=== PATIENT | female | born 1965 | race Caucasian/White ===

== ENCOUNTER 2021-10-09 07:02 | Outpatient (REF) | payer OTHER, SELFPAY ==
[2021-10-09 07:18] LABS: MANUAL DIFF FLAG NO
[2021-10-09 08:22] LABS: Basophils Percent Auto 0.3 % (0-2); Eosinophils Percent Auto 0.5 % (0-4); Hematocrit 37.4 % (37.0-47.0); Hemoglobin 12.9 g/dl (12.0-16.0); Imm Gran Abs Auto 0.02 X10*3/uL (0.00-0.03); Imm Gran Pct Auto 0.3 % (0.0-0.4); Lymphocytes Absolute Auto 1.5 X10*3/uL (1.2-4.9); Lymphocytes Percent Auto 22.9 % (20-40); Mean Corpuscular HGB Conc 34.5 g/dl (31.0-35.0); Mean Corpuscular Hemoglobin 32.1 pg (27.0-33.0); Monocytes Absolute Auto 0.5 X10*3/uL (0.1-1.2); Monocytes Percent Auto 7.4 % (2-11); Neutrophils Absolute Auto 4.6 x10*3/uL (2.0-8.3); Neutrophils Percent Auto 68.6 % (45-73); Platelet Count 412 X10*3/uL (160-400); Red Blood Count 4.02 X10*6/uL (4.20-5.50); Red Cell Distribution Width 12.7 % (11.0-16.0); White Blood Count 6.7 X10*3/uL (4.8-10.8)
[2021-10-09 09:07] LABS: HBS Num1 195.47 mIU/mL (0-7.99); ~Hepatitis B Surface Antibody REACTIVE (Nonreactive)
[2021-10-09 09:14] LABS: Alanine Aminotransferase 7 U/L (0-31); Alkaline Phosphatase 101 U/L (39-117); Anion Gap 12 (12-20); Aspartate Amino Transferase 14 U/L (5-31); Blood Urea Nitrogen 14 mg/dL (9-16); Calcium 9.6 mg/dL (8.4-10.2); Carbon Dioxide 23 mmol/L (22-29); Chloride 101 mmol/L (96-108); Cholesterol 190 mg/dL; Estimated Glomerular Filt Rate > 60; Glucose Random 100 mg/dL (60-115); HDL Cholesterol 44 mg/dL; LDL Cholesterol Calculated 128 mg/dl; Potassium 4.4 mmol/L (3.3-5.1); Sodium 132 mmol/L (135-145); Total Protein 6.7 g/dL (6.5-8.0); Triglycerides 93 mg/dL
[2021-10-09 09:36] LABS: Bilirubin Total 0.4 mg/dL (0.0-1.0)
[2021-10-11 13:32] LABS: TS Negative Control Passed; TS Panel A 0; TS Panel B 0; TS Positive Control Passed; TSpotTB Negative (Negative)
== END 2021-10-09 07:03 | disposition home or self-care (01) ==
LOC: HO.LAB 07:02
PROVIDERS: PCP Internal Medicine; Visit Provider Internal Medicine
DX: Z11.1 Encounter for screening for respiratory tuberculosis (principal); E78.2 Mixed hyperlipidemia; F17.200 Nicotine dependence, unspecified, uncomplicated; I10 Essential (primary) hypertension
CPT/HCPCS: 36415; 80053; 80061; 85025; 86481; 86706

== ENCOUNTER 2023-05-07 15:56 | Outpatient (REF) | payer OTHER, SELFPAY ==
--- NOTE | ~2023-05-07 | MM_ITS ---
EXAMINATION: MM SCREENING DIGITAL BREAST TOMOSYNTHESIS, BILATERAL CLINICAL INFORMATION: Screening. Asymptomatic. COMPARISON: Mammography: This study is compared with prior exams dating back to 2012. TECHNIQUE: Digital breast tomosynthesis is performed in both the craniocaudal and mediolateral oblique views along with computer-aided detection (CAD). Synthesized 2D images are generated from the tomosynthesis. FINDINGS: The breasts are heterogeneously dense, which may obscure small masses (ACR BI-RADS breast composition Category c). There are no significant masses, abnormal calcifications, or other abnormalities. MM/MM tomosynthesis screening BI IMPRESSION: No mammographic evidence of malignancy. ASSESSMENT: BI-RADS BI-RADS 1 - Negative RECOMMENDATION: Routine annual mammography screening. 1 year F/U This examination should not preclude the clinical evaluation of a suspicious palpable abnormality. This patient's information was entered into a reminder system with a target due date for their next mammogram.
== END 2023-05-07 15:57 | disposition home or self-care (01) ==
LOC: HO.MAMMO 15:56
PROVIDERS: PCP Internal Medicine; Visit Provider Internal Medicine
DX: Z12.31 Encounter for screening mammogram for malignant neoplasm of breast (principal)
CPT/HCPCS: 77063; 77067

== ENCOUNTER → 2023-05-07 16:00 | Outpatient (BNV) | payer OTHER, SELFPAY | PROVIDERS: PCP Internal Medicine; Visit Provider Radiology Diagnostic Radiology | DX: Z12.31 Encounter for screening mammogram for malignant neoplasm of breast (principal) | CPT/HCPCS: 77063; 77067 ==

== ENCOUNTER 2023-12-31 09:06 | Outpatient (REF) | payer OTHER, SELFPAY ==
[2023-12-31 10:40] LABS: Alanine Aminotransferase 11 U/L (0-31); Albumin Level 4.2 g/dL (3.5-5.0); Alkaline Phosphatase 87 U/L (39-117); Anion Gap 13 (12-20); Aspartate Amino Transferase 16 U/L (5-31); Bilirubin Total 0.5 mg/dL (0.0-1.0); Blood Urea Nitrogen 10 mg/dL (9-16); Calcium 9.3 mg/dL (8.4-10.2); Carbon Dioxide 21 mmol/L (22-29); Chloride 97 mmol/L (96-108); Estimated Glomerular Filt Rate > 60; Glucose Random 88 mg/dL (60-115); Potassium 4.2 mmol/L (3.3-5.1); Sodium 127 mmol/L (135-145); Total Protein 6.7 g/dL (6.5-8.0)
[2024-01-03 10:54] LABS: TS Negative Control Passed; TS Panel A 0; TS Panel B 0; TS Positive Control Passed; TSpotTB Negative (Negative)
== END 2023-12-31 09:07 | disposition home or self-care (01) ==
LOC: HO.LAB 09:06
PROVIDERS: PCP Internal Medicine; Visit Provider Internal Medicine
DX: Z11.1 Encounter for screening for respiratory tuberculosis (principal); E78.00 Pure hypercholesterolemia, unspecified; I10 Essential (primary) hypertension; N39.3 Stress incontinence (female) (male); F17.200 Nicotine dependence, unspecified, uncomplicated
CPT/HCPCS: 36415; 80053; 86481

== ENCOUNTER 2024-06-25 10:14 | Outpatient (REF) | payer OTHER, SELFPAY ==
--- NOTE | ~2024-06-25 | MM_ITS ---
EXAMINATION: MM SCREENING DIGITAL BREAST TOMOSYNTHESIS, BILATERAL CLINICAL INFORMATION: Screening. Asymptomatic. COMPARISON: Mammography: Comparison is made with available priors TECHNIQUE: Digital breast mammography with tomosynthesis is performed in both the craniocaudal and mediolateral oblique views along with computer-aided detection (CAD). FINDINGS: The breasts are heterogeneously dense, which may obscure small masses (ACR BI-RADS breast composition Category c). There are no significant masses, abnormal calcifications, or other abnormalities. MM/MM tomosynthesis screening BI IMPRESSION: No mammographic evidence of malignancy. ASSESSMENT: BI-RADS BI-RADS 1 - Negative RECOMMENDATION: Routine annual mammography screening. 1 year F/U This examination should not preclude the clinical evaluation of a suspicious palpable abnormality. This patient's information was entered into a reminder system with a target due date for their next mammogram. Electronically signed by: Atiya Jones DO 07/05/2024 10:37 AM QUENTIN
== END 2024-06-25 10:15 | disposition home or self-care (01) ==
LOC: HO.MAMMO 10:14
PROVIDERS: PCP Internal Medicine; Visit Provider Internal Medicine
DX: Z12.31 Encounter for screening mammogram for malignant neoplasm of breast (principal)
CPT/HCPCS: 77063; 77067

== ENCOUNTER → 2024-06-25 10:30 | Outpatient (BNV) | payer OTHER, SELFPAY | PROVIDERS: PCP Internal Medicine; Visit Provider Internal Medicine | DX: Z12.31 Encounter for screening mammogram for malignant neoplasm of breast (principal) | CPT/HCPCS: 77063; 77067 ==

== ENCOUNTER 2025-07-13 13:46 | Outpatient (AMB) | payer OTHER, SELFPAY ==
--- NOTE | 2025-07-13 14:10 | A.OFFVIS_ITS ---
Vital Signs 07/13/25 14:11 07/13/25 14:23 Height 5 ft 5 in 5 ft 5 in Weight 150 lb 150 lb BMI 25.0 25.0 Intake Visit Reasons: Rt Foot Fracture Toe,f/u from [facility] Intake Note: Teresita is a 60 year old female who presents today as a new patient for an evaluation of her 5th metatarsal fracture. She was seen at [facility] on 07/10/25 where she was provided with a cam boot and crutches. Patient reports injury occurred after she tripped over her dog and while she was trying to catch her balance her foot accidentally hit her dog's head. She states she has been taking Tylenol and ibuprofen to manage her pain symptoms and has found slight relief. Patient has previous bunionectomy done in her right foot. Allergies bee pollen (Bee Stings) Allergy (Mild, Verified 07/13/25 14:23) SWELLING, HIVES, chlorzoxazone (From Parafon Forte DSC) Allergy (Mild, Verified 07/13/25 14:23) SWELLING ciprofloxacin (Cipro) Allergy (Unknown, Verified 07/13/25 14:23) hives coconut Allergy (Unknown, Uncoded 04/05/20 00:00) hives Parafon Forte DSC Allergy (Unknown, Uncoded 04/05/20 00:00) angioedema HPI HPI Rt Foot Fracture Toe,f/u from [facility]: Details: 60 y/o female seen today for initial evaluation of right 5th toe fracture and painful bunion. She had a mechanical fall at home and was then seen at [facility] on 07/10/25 where she was provided with a cam boot and crutches. She notes pain has improved since then. She also has a history of a painful bunion to her right foot. She had bunion surgery 20+ years ago however the deformity recurred. She was seen by a surgeon at [facility] who recommended MTP fusion. Social: - She works as a nurse at [employer], and is a teacher at [employer]. - (+) tobacco use: 1/2 PPD Review of Systems Const All systems reviewed & are unremarkable except as noted in HPI and below Physical Exam Vital Signs: BMI result Body Mass Index 25.0 Extrem Other: *Bilateral Lower Extremity Focused Exam Vascular: DP/PT 2/4, CFT<3s to digits, TG warm to cool, mild right 5th digit edema Derm: Incision scar over 1st metatarsophalangeal joint Neuro: Protective sensation grossly intact to bilateral lower extremities. MSK: Prominent dorsal and medial eminence noted at the R first metatarsophalangeal (MTP) joint without tenderness on palpation. Tracking hallux valgus deformity. Right 1st Metatarsophalangeal joint ROM: 45?. no crepitus. no pain on end range of motion. No hypermobile first ray. Results Reviewed Results Reviewed: X-ray Read: 07/10/2025 X-ray right foot 3 views (AP, MO, Lateral) reviewed which shows non- displaced extra-articular oblique 5th proximal phalanx fracture. 1st I personally reviewed the imaging and my findings are listed above. Assessment & Plan Assessment & Plan (1) Toe fracture, right: Code(s): S92.911A - Unspecified fracture of right toe(s), initial encounter for closed fracture Category: Medical Qualifiers: Encounter type: initial encounter Toe: lesser toe Fracture type: closed Phalanx: proximal Fracture alignment: nondisplaced Qualified Code(s): S92.514A - Nondisplaced fracture of proximal phalanx of right lesser toe(s), initial encounter for closed fracture Plan: * Reviewed right foot x-ray * Transition from CAM boot to open-toe shoe. * Applied phu tape to 4th/5th toes. * Instructed to avoid high impact activities. * Follow up in 1 month with new x-ray (2) Hallux valgus (acquired), right foot: Code(s): M20.11 - Hallux valgus (acquired), right foot Category: Medical Plan: * Right foot x-rays show retained hardware (k-wire/pin) in the first metatarsal shaft as well as arthritic changes to the 1st MTP. * The patient has significant retained range of motion clinically with no crepitus or pain. Thus, the surgical recommendation is a lapidus procedure (tarso-metatarsal fusion) to correct the hallux valgus deformity (with additional soft tissue balancing at 1st MTP). Additionally, the patient is not a candidate for a distal metatarsal osteotomy due to limited bone stock from her previous surgery. It was explained that a 1st MTP fusion would be a more definitive procedure and she may still require it in the future however correcting her bunion deformity with joint preservation is her goal. Additionally, a first TMT fusion will also allow 1st MTP joint decompression. * The patient will plan for surgical correction likely in September. She was advised to discuss this further in August 1 month pre-op. (3) Hammertoe of right foot: Code(s): M20.41 - Other hammer toe(s) (acquired), right foot Category: Medical Plan: * She will require 2nd MTP soft tissue balancing (Z-lengthening) and possible revisional hammertoe arthrodesis. (4) Smoker: Code(s): F17.200 - Nicotine dependence, unspecified, uncomplicated Category: Social Hx Plan: * Tobacco use is known to impair fracture healing by reducing blood flow, inhibiting osteoblast function, and decreasing collagen synthesis. Studies have shown that smokers have up to a 2.3-fold increased risk of delayed union or nonunion compared to non-smokers, and increasing time to union by 4-6 weeks, leading to a higher incidence of complications during the bone healing process. * She was advised to quit smoking at least 6 weeks prior to surgery. Orders: Orders XR foot RT min 3V 3 Weeks M20.11 - Hallux valgus (acquired), right foot, S92.514A - Nondisplaced fracture of proximal phalanx of right lesser toe(s), initial encounter for closed fracture Coding Level of Care Code New Pt Level 4 (25843) Diagnoses Closed nondisplaced fracture of proximal phalanx of lesser toe of right foot, initial encounter S92.514A Encounter type: initial encounter Toe: lesser toe Fracture type: closed Phalanx: proximal Fracture alignment: nondisplaced Hallux valgus (acquired), right foot M20.11 Hammertoe of right foot M20.41 Smoker F17.200 Time Spent (min) 35
[2025-07-13 14:11] VITALS: BMI 25.0
[2025-07-13 14:23] VITALS: BMI 25.0
--- OUTSIDE RECORDS SUMMARY | 2025-07-13 19:12 | XMS_ITS | Data Portability ---
Author Organization [facility], [address] Address [address] [place] [address] Assessment No assessment recorded. Plan of Treatment Reminders Order Date Submit Date Provider Last Modified By Organization Details Last Modified Time Details Appointments None recorded. Lab rapid SARS CoV 2 Ag, QL IA, respiratory specimen 2021 [email or web address] 1 _[facility], [address] [place] [address], [phone], 12:58:37 rapid flu (A+B) 2021 [email or web address] 1 _[facility], [address] [place] [address], [phone], 12:58:37 Referral None recorded. Procedures None recorded. Surgeries None recorded. Imaging None recorded. Medication Orders oseltamivir 75 mg capsule 2021 [id number], [address] [place], [address], 12:58:40 fluticasone propionate 50 mcg/actuati on nasal spray,suspe nsion 2021 [facility] #[id number], [address] [place], [address], 12:58:39 Patient TargetsNo targets recorded. Patient Instructions Encounter Date Encounter Id Patient Instructions Last Modified By Organization Details Last Modified Time 08/14/2022 [id number] influenza (flu): care instructions Not available 08/14/2022 12:58:37 Reason for Referral None Reported. Results Created Date Observation Date Name Description Value Unit Range Abnormal Flag Note LastModifiedBy Organization Detail LastModifiedTime 08/14/20 22 08/14/2022 rapid SARS CoV 2 Ag, QL IA, respi rator y speci men Unknown Analyte Normal =Negat victoria Not Available [id number] sorensen [address], [address], 08/14/2022 12:21:18 08/14/20 22 08/14/2022 rapid SARS CoV 2 Ag, QL IA, respi rator y speci men Unknown Analyte negati ve Not Available [id number], [address], 08/14/2022 12:21:18 08/14/20 22 08/14/2022 rapid flu (A+B) Unknown Analyte Normal = Negati ve Not Available [id number], [address], 08/14/2022 12:21:24 08/14/20 22 08/14/2022 rapid flu (A+B) Unknown Analyte Normal = Negati ve Not Available [id number], [address], 08/14/2022 12:21:24 08/14/20 22 08/14/2022 rapid flu (A+B) Unknown Analyte negati ve Not Available [id number], [address], 08/14/2022 12:21:24 08/14/20 22 08/14/2022 rapid flu (A+B) Unknown Analyte negati ve Not Available [id number], [address], 08/14/2022 12:21:24 Result Notes None recorded. Problems Name Problem SNOMED Code Status Onset Date Resolution Date Notes Provider Name and Address Organization Details Recorded Time Essential hypertension 18250803 Active 2021 IVANIA belle PA - [facility] 12:19:51 Problem Notes None recorded. Medical Equipment None Reported. Allergies Allergen ID Allergen Name Allergen Category Reaction Reaction Severity Criticality Documentation Date Start Date Code Code System Note Provider Name and Address Organization Details Recorded Time 49977 Parafon Forte DSC medicatio n anaphylax is severe high 08/14/2022 56344 8 RxNorm IVANIA belle, PA - [facility] 12:19:27 Medications Name Sig Start Date Stop Date Status Note LastModified by Organization Details LastModified Time oseltamivir 75 mg capsule Take 1 capsule twice a day by oral route for 5 days. 2021 active Not Available Not Available Not Avai lable lisinopril 20 mg-hydrochl orothiazide 25 mg tablet TAKE 1 TABLET BY MOUTH EVERY DAY active Not Available Not Available No t Available ibuprofen 600 mg tablet TAKE 1 TABLET BY MOUTH THREE TIMES A DAY 08/14 completed Not Available Not Available Not Available fluticasone propionate 50 mcg/actuati on nasal spray,suspe nsion Parsons 1 spray twice a day by intranasa l route as directed. 2021 active Not Available Not Available Not Avai lable amoxicillin -potassium clavulanate 1,000 mg-62.5 mg tablet,ext. rel 12hr TAKE 1 TABLET BY MOUTH TWICE A DAY 08/14 completed Not Available Not Available Not Available Vitals Date Recorded Body height Body mass index (BMI) Body weight Body temperature Respiratory rate Heart rate Oxygen saturation Oxygen saturation in Arterial blood by Pulse oximetry Systolic And Diastolic Provider Name and Address Organization Details Last Updated DateTime 2 165.1 cm 23.3 kg/m2 80739.9 3 g 97.8 [degF] 18 /min 96 /min 99 % 99 % 145/91 mm[Hg] IVANIA Peralta PA - [facility] 2 12:22:54 Social History Question Answer Notes LastModified by Organizat ion Details LastModified Time Tobacco Smoking Status Former Smoker MICHAEL Mueller - [facility] 08/14/2022 12:20:42 What Is Your Water Source? City Information not available 08/14/2022 What Is Your Heat Source? Gas Information not available 08/14/2022 Have You Had Direct Contact, Or Contact During Intimacy, With Monkeypox Rash, Scabs, Or Body Fluids From A Person With Monkeypox? No Information not available 08/14/2022 Have You Recently Traveled Abroad? No Information not available 08/14/2022 Sex: Unknown Functional Status Question Answer Note LastModified by [employer] Details LastModified Time Do you use any illicit or recreational drugs? No Information not available 08/14/2022 Do you or have you ever used any other forms of tobacco or nicotine? No Information not available 08/14/2022 What is your level of alcohol consumption? Occasional Information not available 08/14/2022 Mental Status None recorded. Family History Relationship Description Onset Age of this Age Resolved Age Notes LastModified by Organization Details LastModified Time Father No current problems or disability Not available 12:20:18 Mother No current problems or disability Not available 12:20:18 Medical History No medical history recorded. Gynecological HistoryNo gynecological history recorded. Obstetrics History GPAL:G 0 P 0 0 0 0 Past Encounters Encounter ID Performer Location Encounter Start Date Encounter Closed Date Diagnosis/Indication Diagnosis SNOMED-CT Code Diagnosis ICD10 Code Diagnosis IMO Codes Diagnosis Note [id number] [facility] [address] [place] [address] 09/24/2020 08:13:31 09/24/2020 11:12:25 [id number] [address] [facility] [address] [place] [address] 07/03/2019 08:55:23 07/03/2019 09:26:35 [id number] FERNANDO HAYNES MD [address] [address] [address] [place] [address] 08/14/2022 11:02:41 08/14/2022 13:02:27 Influenza 3008371 J11.1 Drink plenty of fluids If your symptoms worsen or persist you should be re-evaluat ed. If your symptoms are getting worse, or if you develop new symptoms that concern you, you should call 911 or go to the Emergency Department . Return to [facility] or see your primary care physician if your symptoms fail to improve in 3-5 days. You should follow up sooner if your symptoms worsen significan tly or if you develop new symptoms that concern you. Fever [id number] R50.9 Health Concerns Section Related Observation LastModified by Organization Detai ls LastModified Time None Recorded Concern Status LastModified by Organization Details LastModified Time None Recorded Advance Directives Directive None Recorded Payers Insurance Date Sequence Insurance Name Policy Number Policy Schulz Covered Member ID Schulz Member ID Guarantor Name 08/14/[address] [place] [address] [id number] Teresita Toth [id number] Teresita Toth Notes Date Note Type Note Provider Name and Address Organization Details Recorded Time 08/14/2022 text/html CoughReported by PatientHPIFor quality, patient reportsdry. For associated symptoms, patient reportsfever,chills, andpost nasal dripbut reportsno heartburn,no nausea, andno vomiting. For severity, patient reportsmoderate. For duration, patient reportsconstant. For timing, patient reportsconstant. mild dry cough 2d ago but yest hit with f/c/s, aches, congestion, COFFEY. Temp 102. Trying mucinex-DM, tylenol, ibuprofen, nyquil at night FERNANDO HAYNES MD [address] [place], [address], [place] - [facility] 08/14/2022 13:00:22 OBGyn Episode No OBEpisode recorded.
--- OUTSIDE RECORDS SUMMARY | 2025-07-13 19:12 | XMS_ITS | Data Portability ---
Author Organization [place] - [facility], [facility] Address [address] [place] [address] Care Team Providers Care Non Destructive Evaluation Manager Name Role Phone MARGARETH JACOBS Primary Care Provider Assessment No assessment recorded. Plan of Treatment Reminders Order Date Submit Date Provider Last Modified By Organization Details Last Modified Time Details Appointments None recorded. Lab None recorded. Referral None recorded. Procedures None recorded. Surgeries arthrodesis , metatarsoph alangeal joint (SURG) 2023 024 [email or web address] Not available 4 08:39:01 Imaging XR, foot, 3 or more view - right foot /ankle 5v wb , recheck 2023 024 [facility], [address], [address], [place], [address], 4 11:25:59 XR, ankle, 3 or more view 2023 024 [facility], [address], [address], [place], [address], 4 11:25:59 Medication Orders None recorded. Patient TargetsNo targets recorded. Patient InstructionsNo instructions recorded. Reason for Referral None Reported. Medical Equipment None Reported. Allergies Allergen ID Allergen Name Allergen Category Reaction Reaction Severity Criticality Documentation Date Start Date Code Code System Note Provider Name and Address Organization Details Recorded Time 088885 chlorzoxa zone medicatio n Not available Not available Not available 01/08/2024 2410 RxNorm Melly belle [place] - [facility] 4 10:39:09 [id number] Wayne Allen DSC medicatio n anaphylax is severe high 07/12/2025 88860 8 RxNorm Not Available ellie - External Data Service - prod 5 11:11:42 Medications Name Sig Start Date Stop Date Status Note LastModified by Organization Details LastModified Time lisinopril 20 mg tablet TAKE 1 TABLET BY MOUTH EVERY DAY active Not Available Not Available No t Available nicotine 21 mg/24 hr daily transdermal patch EVERY DAY active Not Available Not Available No t Available lisinopril 20 mg-hydrochlor othiazide 25 mg tablet TAKE 1 TABLET BY MOUTH EVERY DAY active Not Available Not Available No t Available Vitals Date Recorded Body height Body mass index (BMI) Body weight Provider Name and Address Organization Details Last Updated DateTime 01/08/2024 165.1 cm 25 kg/m2 18546.86 g Melly Wells [place] - [facility] 01/08/2024 10:37:36 Social History None recorded. Functional Status None recorded. Mental Status None recorded. Family History Nothing Reported. Medical History No medical history recorded. Gynecological HistoryNo gynecological history recorded. Obstetrics History GPAL:G 0 P 0 0 0 0 Past Encounters Encounter ID Performer Location Encounter Start Date Encounter Closed Date Diagnosis/Indication Diagnosis SNOMED-CT Code Diagnosis ICD10 Code Diagnosis IMO Codes Diagnosis Note [id number] Cassidy Barrera MD [facility] 1st Floor [address] [facility] [place] [address] 01/08/2024 08:08:34 02/02/2024 11:51:09 Pain in right foot 7576366217 80416 M79.671 Acquired r ight hallux valgus 3306541024 15788 M20.11 Acquired r ight hallux rigidus 6071549642 41576 M20.21 Health Concerns Section Related Observation LastModified by Organization Detai ls LastModified Time None Recorded Concern Status LastModified by Organization Details LastModified Time None Recorded Advance Directives Directive None Recorded Payers Insurance Date Sequence Insurance Name Policy Number Policy Schulz Covered Member ID Schulz Member ID Guarantor Name 03/01/[address] [facility] [id number] 1 Teresita Toth [id number] Teresita Toth Notes Date Note Type Note Provider Name and Address Organization Details Recorded Time 01/08/2024 text/html Chief complaint: Right foot pain and deformity History of present illness: Teresita presents today for follow-up evaluation of her right foot pain. We have not seen her in office since May 2021. She is status post attempted hallux valgus correction by a stitch bonding machine tender over 10 years ago. Her metatarsal osteotomy was fixed with a K wire. She has developed bursitis over her K wire and we did at 1 point in time discussed K wire removal. She is also been noted to have a fairly severe recurrence of deformity. Her x-ray demonstrated very aggressive resection of the medial eminence and distal first metatarsal. We had discussed moving forward with hardware removal as well as first MTP fusion but the patient has deferred surgery due to inability to take time off of work. On presentation today she continues to complain of pain dorsally in the region of her K wire as well as in the region of the medial eminence of the first metatarsal head. She is interested in moving forward with surgery. Patient's past medical, surgical, social history are as noted on the intake sheet. I reviewed this sheet and discussed contents with the patient there are no changes Physical exam: Patient in no acute distress, alert and oriented. Mood and affect appropriate On standing examination there is symmetric physiologic valgus of the hindfoot bilaterally with neutral forefoot position Bilaterally there is full, painless passive range of motion of the ankle, subtalar, transverse tarsal joints Focused examination right lower extremity there is an area of focal swelling/bursitis overlying the first metatarsal. She is tender in this region and the K wires palpable There is no evidence of skin breakdown There is severe hallux valgus deformity which is not fully passively reducible There is mild second hammertoe deformity On motor exam she has 5 out of 5 strength dorsiflexion, plantarflexion, inversion, eversion Sensation intact light touch in the sural, saphenous, deep peroneal, superficial peroneal and tibial nerve distributions Toes are warm and well-perfused with palpable DP and PT pulses Imaging: AP, lateral, oblique weightbearing imaging of the right foot and ankle was obtained today in office. Imaging of the ankle demonstrate symmetric mortise with no talar tilt or shift. There is no evidence of acute fracture or degenerative change. Weightbearing imaging of the right foot demonstrates evidence of recurrent hallux valgus deformity. There is been aggressive resection of a portion of the distal first metatarsal as well as the medial eminence. Retained K wire in place in the first metatarsal distally. The prominence of the K wire is noted on lateral x-ray. The patient does have a mild second hammertoe deformity which is unchanged from previous Pression: Status post podiatric hallux valgus correction 10 years ago Right severe recurrent hallux valgus deformity Symptomatic hardware right first metatarsal Mild right second hammertoe deformity, asymptomatic Plan: I reviewed today's physical examination and imaging findings at length with the patient. Treatment options were discussed at length. At this point in time the patient has a longstanding history of pain. She has difficulty wearing shoes because of the prominence of the K wire as well as her deformity. Is reasonable to consider moving forward with surgery We discussed that operative correction will involve removal of hardware for the first metatarsal, first MTP fusion and medial sesamoidectomy. We could also consider concurrent second hammertoe correction however the patient does not feel her second hammertoe symptoms are severe enough to warrant surgery Risks and benefits of operative invention were discussed with patient at length including limited to: Bleeding, infection, damage to surrounding neurovascular structures possibility of nonunion, possibly malunion, possibility of symptomatic hardware requiring removal at a later date. Perioperative risk such as DVT and PE were discussed patient decayed she understood the risk which proceed Surgical booking slip has been placed she will contact us to set up surgery Cassidy Barrera MD [address] [facility] [address], [place], [address], [facility] - [facility] 01/18/2024 16:27:48 OBGyn Episode No OBEpisode recorded.
== END 2025-07-13 14:44 | disposition home or self-care (01) ==
LOC: HO.HPODS 13:47
PROVIDERS: PCP Internal Medicine; Visit Provider Student in an Organized Health Care Education/Training Program
DX: S92.514A Nondisplaced fracture of proximal phalanx of right lesser toe(s), initial encounter for closed fracture (principal); M20.11 Hallux valgus (acquired), right foot; M20.41 Other hammer toe(s) (acquired), right foot; F17.200 Nicotine dependence, unspecified, uncomplicated
CPT/HCPCS: 99204

== ENCOUNTER 2025-08-10 14:02 | Outpatient (AMB) | payer OTHER, SELFPAY ==
--- NOTE | 2025-08-10 14:16 | A.OFFVIS_ITS ---
Vital Signs 08/10/25 14:17 Height 5 ft 5 in Weight 150 lb BMI 25.0 Intake Visit Reasons: F/U xray, Rt Foot Fracture Toe Intake Note: Teresita is a 60 year old female who presents to the office today for a follow up X-ray, Rt Foot Fracture Toe. Pt states she is still experiencing pain however she still notes she has seen improvement in her mobility. no questions or cheri rns at this time. Allergies bee pollen (Bee Stings) Allergy (Mild, Verified 08/10/25 14:18) SWELLING, HIVES, chlorzoxazone (From Parafon Forte DSC) Allergy (Mild, Verified 08/10/25 14:18) SWELLING ciprofloxacin (Cipro) Allergy (Unknown, Verified 08/10/25 14:18) hives coconut Allergy (Unknown, Uncoded 04/05/20 00:00) hives Parafon Forte DSC Allergy (Unknown, Uncoded 04/05/20 00:00) angioedema HPI HPI F/U xray, Rt Foot Fracture Toe: Details: 60 y/o female seen today for 1 month f/u evaluation of right 5th toe fracture and painful bunion. She has not yet received her new x-rays. She is no longer experiencing any pain to her 5th toe, she notes some occasional pain to her 5th metatarsal region. She is no longer phu taping her toes. She would like to discuss surgical correction of her bunion and hammertoe. History: She had a mechanical fall at home and was then seen at [place] [facility] on 07/10/25 where she was provided with a cam boot and crutches. She notes pain has improved since then. She also has a history of a painful bunion to her right foot. She had bunion surgery 20+ years ago however the deformity recurred. She was seen by a surgeon at [facility] who recommended MTP fusion. Social: - She works as a nurse at [employer], and is a teacher at [employer]. - (+) tobacco use: 1/2 PPD Review of Systems Const All systems reviewed & are unremarkable except as noted in HPI and below Physical Exam Vital Signs: BMI result Body Mass Index 25.0 Extrem Other: *Bilateral Lower Extremity Focused Exam Vascular: DP/PT 2/4, CFT<3s to digits, TG warm to cool, mild right 5th digit edema Derm: Incision scar over 1st metatarsophalangeal joint Neuro: Protective sensation grossly intact to bilateral lower extremities. MSK: Prominent dorsal and medial eminence noted at the R first metatarsophalang eal (MTP) joint without tenderness on palpation. Tracking hallux valgus deformity. Right 1st Metatarsophalangeal joint ROM: 45?. no crepitus. no pain on end range of motion. No hypermobile first ray. Results Reviewed Results Reviewed: X-ray Read: 07/10/2025 X-ray right foot 3 views (AP, MO, Lateral) reviewed which shows non- displaced extra-articular oblique 5th proximal phalanx fracture. 1st metatarsal with moderate 1st MTP joint space narrowing, retained hardware in the 1st metatarsal, TSP 4, minimal medial eminence. Atavastic 1st TMT shape. Mildly elongated 2nd/3rd metatarsals (+2mm). I personally reviewed the imaging and my findings are listed above. Assessment & Plan Assessment & Plan (1) Toe fracture, right: Code(s): S92.911A - Unspecified fracture of right toe(s), initial encounter for closed fracture Category: Medical Qualifiers: Encounter type: initial encounter Toe: lesser toe Fracture type: closed Phalanx: proximal Fracture alignment: nondisplaced Qualified Code(s): S92.514A - Nondisplaced fracture of proximal phalanx of right lesser toe(s), initial encounter for closed fracture Plan: * Will review right foot x-rays with the patient after she receives them * Instructed to avoid high impact activities likely for 4 more weeks * Discontinue phu taping and any shoe-wear modifications (2) Hallux valgus (acquired), right foot: Code(s): M20.11 - Hallux valgus (acquired), right foot Category: Medical Plan: * Right foot x-rays show retained hardware (k-wire/pin) in the first metatarsal shaft as well as arthritic changes to the 1st MTP. * The patient has significant retained range of motion clinically with no crepitus or pain. Thus, the surgical recommendation is a lapidus procedure (tarso-metatarsal fusion) to correct the hallux valgus deformity (with additional soft tissue balancing at 1st MTP). Additionally, the patient is not a candidate for a distal metatarsal osteotomy due to limited bone stock from her previous surgery. It was explained that a 1st MTP fusion would be a more definitive procedure and she may still require it in the future however correcting her bunion deformity with joint preservation is her goal. Additionally, a first TMT fusion will also allow 1st MTP joint decompression. * The patient will plan for surgical correction likely in December. She was advised to discuss this further in November 1 month pre-op. (3) Hammertoe of right foot: Code(s): M20.41 - Other hammer toe(s) (acquired), right foot Category: Medical Plan: * She will require 2nd MTP soft tissue balancing (Z-lengthening), revisional hammertoe arthrodesis, 2nd metatarsal shortening osteotomy. * She may require 3rd MTP capsulotendon balancing (4) Smoker: Code(s): F17.200 - Nicotine dependence, unspecified, uncomplicated Category: Social Hx Plan: * Tobacco use is known to impair fracture healing by reducing blood flow, inhibiting osteoblast function, and decreasing collagen synthesis. Studies have shown that smokers have up to a 2.3-fold increased risk of delayed union or nonunion compared to non-smokers, and increasing time to union by 4-6 weeks, leading to a higher incidence of complications during the bone healing process. * She was advised to quit smoking at least 6 weeks prior to surgery. Coding Level of Care Code Est Pt Level 3 (69486) Diagnoses Closed nondisplaced fracture of proximal phalanx of lesser toe of right foot, initial encounter S92.514A Encounter type: initial encounter Toe: lesser toe Fracture type: closed Phalanx: proximal Fracture alignment: nondisplaced Hallux valgus (acquired), right foot M20.11 Hammertoe of right foot M20.41 Smoker F17.200 Time Spent (min) 25
[2025-08-10 14:17] VITALS: BMI 25.0
--- OUTSIDE RECORDS SUMMARY | 2025-08-10 18:17 | XMS_ITS | Data Portability ---
Author Organization [place] - [facility], [facility] Address [address] [place] [address] Care Team Providers Care Bench Examiner Name Role Phone MARGARETH JACOBS Primary Care Provider [phone] Assessment No assessment recorded. Plan of Treatment Reminders Order Date Submit Date Provider Last Modified By Organization Details Last Modified Time Details Appointments None recorded. Lab None recorded. Referral None recorded. Procedures None recorded. Surgeries arthrodesis , metatarsoph alangeal joint (SURG) 2023 024 [email or web address] Not available 4 08:39:01 Imaging XR, foot, 3 or more view - right foot /ankle 5v wb , recheck 2023 024 [facility], [address], [place], [address], 4 11:25:59 XR, ankle, 3 or more view 2023 024 [facility], [address], [place], [address], 4 11:25:59 Medication Orders None recorded. Patient TargetsNo targets recorded. Patient InstructionsNo instructions recorded. Reason for Referral None Reported. Medical Equipment None Reported. Allergies Allergen ID Allergen Name Allergen Category Reaction Reaction Severity Criticality Documentation Date Start Date Code Code System Note Provider Name and Address Organization Details Recorded Time 509714 chlorzoxa zone medicatio n Not available Not available Not available 01/08/2024 2410 RxNorm Melly belle [place] - [facility] 4 10:39:09 [id number] Wayne Allen DSC medicatio n anaphylax is severe high 07/12/2025 14386 8 RxNorm Not Available ellie - External [...] Updated DateTime 01/08/2024 165.1 cm 25 kg/m2 00959.86 g Melly Wells [place] - [facility] 01/08/2024 10:37:36 Social History None recorded. Functional Status None recorded. Mental Status None recorded. Family History Nothing Reported. Medical History No medical history recorded. Gynecological HistoryNo gynecological history recorded. Obstetrics History GPAL:G 0 P 0 0 0 0 Past Encounters Encounter ID Performer Location Encounter Start Date Encounter Closed Date Diagnosis/Indication Diagnosis SNOMED-CT Code Diagnosis ICD10 Code Diagnosis IMO Codes Diagnosis Note [id number] Cassidy Barrera MD [facility] 1st Floor [address] [facility] [place] [address] 01/08/2024 08:08:34 02/02/2024 11:51:09 Pain in right foot 7651915589 87936 M79.671 Acquired r ight hallux valgus 5500722951 26826 M20.11 Acquired r ight hallux rigidus 8179171072 47950 M20.21 Health Concerns Section Related Observation LastModified by Organization Detai ls LastModified Time None Recorded Concern Status LastModified by Organization Details LastModified Time None Recorded Advance Directives Directive None Recorded Payers Insurance Date Sequence Insurance Name Policy Number Policy Schulz Covered Member ID Schulz Member ID Guarantor Name 03/01/2024 1 [facility] [id number] 1 Teresita Toth [id number] Teresita Toth Notes Date Note Type Note Provider Name and Address Organization Details Recorded Time 01/08/2024 text/html Chief complaint: Right foot pain and deformity History of present illness: Teresita presents today for follow-up evaluation of her right foot pain. We have not seen her in office since May 2021. She is status post attempted hallux valgus correction by a commercial loan officer over 10 years ago. Her metatarsal osteotomy [...] set up surgery Cassidy Barrera MD [address] [facility] [address] [address], [place], [address], [facility] - [facility] 01/18/2024 16:27:48 OBGyn Episode No OBEpisode recorded.
--- OUTSIDE RECORDS SUMMARY | 2025-08-10 18:17 | XMS_ITS | Data Portability ---
Author Organization [facility] Address [address] [place] [address] Assessment No assessment recorded. Plan of Treatment Reminders Order Date Submit Date Provider Last Modified By Organization Details Last Modified Time Details Appointments None recorded. Lab rapid SARS CoV 2 Ag, QL IA, respiratory specimen 2021 [email or web address] 1 _[facility], [address] [place] [address], [phone], 12:58:37 rapid flu (A+B) 2021 [email or web address] 1 _[facility], [address] [place] [address], [address], 12:58:37 Referral None recorded. Procedures None recorded. Surgeries None recorded. Imaging None recorded. Medication Orders oseltamivir 75 mg capsule 2021 [id number], [address] [place], [address], 12:58:40 fluticasone propionate 50 mcg/actuati on nasal spray,suspe nsion 2021 [id number], [address] [place], [address], 12:58:39 Patient TargetsNo targets recorded. Patient Instructions Encounter Date Encounter Id Patient Instructions Last Modified By Organization Details Last Modified Time 08/14/2022 [id number] influenza (flu): care instructions [email or web address] Not available 08/14/2022 12:58:37 Reason for Referral None Reported. Results Created Date Observation Date Name Description Value Unit Range Abnormal Flag Note LastModifiedBy Organization Detail LastModifiedTime 08/14/20 22 08/14/2022 rapid SARS CoV 2 Ag, QL IA, respi rator y speci men Unknown Analyte Normal =Negat victoria Not Available [id number] sorensen [address], [address], 08/14/2022 12:21:18 08/14/20 22 08/14/2022 rapid SARS CoV 2 Ag, QL IA, respi rator y speci men Unknown Analyte negati ve Not Available [id number] [address], [address], 08/14/2022 12:21:18 08/14/20 22 08/14/2022 rapid flu (A+B) Unknown Analyte Normal = Negati ve Not Available [id number] [address], [address], 08/14/2022 12:21:24 08/14/20 22 08/14/2022 rapid flu (A+B) Unknown Analyte Normal = Negati ve Not Available 2099rubén [address], [address], 08/14/2022 12:21:24 08/14/20 22 08/14/2022 rapid flu (A+B) Unknown Analyte negati ve Not Available [id number] [address], [address], 08/14/2022 12:21:24 08/14/20 22 08/14/2022 rapid flu (A+B) Unknown Analyte negati ve Not Available [id number] [address], [address], 08/14/2022 12:21:24 Result Notes None recorded. Problems Name Problem SNOMED Code Status Onset Date Resolution Date Notes Provider Name and Address Organization Details Recorded Time Essential hypertension 79625235 Active 2021 IVANIA belle, [place] - [facility] 12:19:51 Problem Notes None recorded. Medical Equipment None Reported. Allergies Allergen ID Allergen Name Allergen Category Reaction Reaction Severity Criticality Documentation Date Start Date Code Code System Note Provider Name and Address Organization Details Recorded Time 12266 Parafon Forte DSC medicatio n anaphylax is severe high 08/14/2022 53354 8 RxNorm IVANIA belle, [place] - [facility] 2 12:19:27 Medications Name Sig Start Date Stop [...] propionate 50 mcg/actuati on nasal spray,suspe nsion E[place]ora 1 spray twice a day by intranasa [...] temperature Respiratory rate Heart rate Oxygen saturation Systolic And Diastolic Provider Name and Address Organization Details Last Updated DateTime 2 165.1 cm 23.3 kg/m2 39637.9 3 g 97.8 [degF] 18 /min 96 /min 99 % 145/91 mm[Hg] IVANIA Peralta PA [...] Functional Status Question Answer Note LastModified by Organizat ion Details LastModified Time Do you use any [...] ICD10 Code Diagnosis IMO Codes Diagnosis Note [id number] [facility] [address] [place] [address] 09/24/2020 08:13:31 09/24/2020 11:12:25 [id number] [facility] [address] [place] [address] 07/03/2019 08:55:23 07/03/2019 09:26:35 [id number] FERNANDO HAYNES MD [facility] [address] [place] [address] 08/14/2022 11:02:41 08/14/2022 13:02:27 Influenza 9907299 J11.1 Drink plenty of fluids If your [...] develop new symptoms that concern you. Fever 698968425 R50.9 Health Concerns Section Related Observation LastModified by Organization Detai ls LastModified Time None Recorded Concern Status LastModified by Organization Details LastModified Time None Recorded Advance Directives Directive None Recorded Payers Insurance Date Sequence Insurance Name Policy Number Policy Schulz Covered Member ID Schulz Member ID Guarantor Name 08/14/[address] [place] [address] [id number] Teresita Toth [id number] Teresita Toth Notes Date Note Type Note [...] HAYNES MD [address] [place], [address], [place] - [facility] 08/14/2022 13:00:22 OBGyn Episode No OBEpisode recorded.
== END 2025-08-10 14:47 | disposition home or self-care (01) ==
LOC: HO.HPODS 14:02
PROVIDERS: PCP Internal Medicine; Visit Provider Student in an Organized Health Care Education/Training Program
DX: S92.514A Nondisplaced fracture of proximal phalanx of right lesser toe(s), initial encounter for closed fracture (principal); M20.11 Hallux valgus (acquired), right foot; M20.41 Other hammer toe(s) (acquired), right foot; F17.200 Nicotine dependence, unspecified, uncomplicated
CPT/HCPCS: 99213

== ENCOUNTER 2025-08-14 10:03 | Outpatient (REF) | payer OTHER, SELFPAY ==
--- NOTE | ~2025-08-14 | XR_ITS ---
EXAMINATION: XR FOOT 3 OR MORE VIEWS RIGHT HISTORY: S92.514A - Nondisplaced fracture of proximal phalanx of right lesser toe... COMPARISON: There are no prior studies available for comparison. FINDINGS: Three views of the right foot are submitted. Osseous mineralization is normal. There is a fracture deformity of the 1st metatarsal. A K wire is noted in place. There is lucency about the K wire, suggestive of loosening. No acute fracture or dislocation is seen. The joint spaces are preserved. The soft tissues are unremarkable. XR/XR foot RT min 3V IMPRESSION: K wire in the 1st metatarsal. Lucency about the K wire is suggestive of loosening. Electronically signed by: Jenaro Walsh MD 08/14/2025 01:18 PM QU[facility]IN
== END 2025-08-14 10:04 | disposition home or self-care (01) ==
LOC: HO.XRAY 10:03
PROVIDERS: PCP Internal Medicine; Visit Provider Student in an Organized Health Care Education/Training Program
DX: S92.514A Nondisplaced fracture of proximal phalanx of right lesser toe(s), initial encounter for closed fracture (principal); M20.11 Hallux valgus (acquired), right foot
CPT/HCPCS: 73630

== ENCOUNTER → 2025-08-14 10:06 | Outpatient (BNV) | payer OTHER, SELFPAY | PROVIDERS: PCP Internal Medicine; Visit Provider Radiology Diagnostic Radiology | DX: S92.514A Nondisplaced fracture of proximal phalanx of right lesser toe(s), initial encounter for closed fracture (principal) | CPT/HCPCS: 73630 ==